=== PATIENT | female | born 2000 | race Caucasian/White ===

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

== ENCOUNTER → 2018-12-04 00:43 | Observation (INO) ==
[2018-12-03 23:25] LABS: Bilirubin,Urine Small (Negative); Blood,Urine Negative (Negative); Clarity,Urine Clear (Clear); Color,Urine Dark Yellow (Yellow); Glucose,Urine (UA) Normal (Normal); Ketones,Urine Trace mg/dL (Negative); Leukocyte Esterase,Urine Negative (Negative); Nitrite,Urine Negative (Negative); PH,Urine 5.5 pH Units (5.0-8.0); Protein,Urine Trace mg/dL (Neg-Trace); Specific Gravity,Urine 1.029 (1.010-1.025); Urobilinogen,Urine Normal (Normal)
[2018-12-03 23:33] LABS: Amphetamine Screen,Urine Negative ng/mL (Cutoff=1000); Barbiturate Screen,Urine Negative ng/mL (Cutoff=200); Benzodiazepines Screen,Urine Negative ng/mL (Cutoff=200); Cannabinoid Screen,Urine Negative ng/mL (Cutoff = 50); Cocaine Screen,Urine Negative ng/mL (Cutoff= 300); Opiate Screen,Urine Negative ng/mL (Cutoff=300); Phencyclidine Screen,Urine Negative ng/mL (Cutoff=25)
--- NOTE | 2018-12-04 01:11 | Discharge Summary ---
Date of Encounter: 12/04/18 Time of Encounter: 01:10 - Discharge Diagnosis (1) 34 weeks gestation of Priority: Primary Status: Acute Comments: Follow-up with her primary compounding pharmacy technician as scheduled labor parameters discussed Discharge home (2) Abdominal cramping affecting Priority: Secondary Status: Acute Comments: Patient was monitored for 2 hours with no cervical change Urinalysis showed moderate dehydration-encouraged to increase by mouth water intake - Discharge Medications Prescriptions: No Action Vits #90/Iron Fum/FA [ Formula Tablet] 1 each PO DAILY Ondansetron ODT [Zofran ODT] 4 mg SL Q6HR #10 tab.rapdis Home Medications: Vits #90/Iron Fum/FA [ Formula Tablet] 1 each PO DAILY 07/01/18 [History] Ondansetron ODT [Zofran ODT] 4 mg SL Q6HR #10 tab.rapdis 07/23/18 [Rx] Allergies/Adverse Reactions: Allergy/AdvReac Type Severity Reaction Status Date / Time No Known Allergies Allergy Verified 05/29/18 21:03 Data Procedures and tests throughout hospitalization: Laboratory Tests 12/03/18 12/03/18 23:10 23:10 Urine Color Dark Yellow Urine Clarity Clear Urine pH 5.5 Ur Specific [place] 1.029 H Urine Protein Trace Urine Glucose (UA) Normal Urine Ketones Trace H Urine Blood Negative Urine Nitrite Negative Urine Bilirubin Small H Urine Urobilinogen Normal Ur Leukocyte Esterase Negative Ur Culture Indicated? NO Urine Opiates Screen Negative Ur Barbiturates Screen Negative Ur Phencyclidine Scrn Negative Ur Amphetamines Screen Negative U Benzodiazepines Scrn Negative Urine Cocaine Screen Negative U Marijuana (THC) Screen Negative Ur Drug Screen Interp See Below Labs on day of discharge: Labs from last 24 hours 12/03/18 12/03/18 23:10 23:10 Urine Color Dark Yellow Urine Clarity Clear Urine pH 5.5 Ur Specific [place] 1.029 H Urine Protein Trace Urine Glucose (UA) Normal Urine Ketones Trace H Urine Blood Negative Urine Nitrite Negative Urine Bilirubin Small H Urine Urobilinogen Normal Ur Leukocyte Esterase Negative Ur Culture Indicated? NO Urine Opiates Screen Negative Ur Barbiturates Screen Negative Ur Phencyclidine Scrn Negative Ur Amphetamines Screen Negative U Benzodiazepines Scrn Negative Urine Cocaine Screen Negative U Marijuana (THC) Screen Negative Ur Drug Screen Interp See Below Date of admission: 12/03/18 22:58 Discharging clinician: Missy Wiseman Anticipated date of discharge: 12/04/18 - Patient Status Disposition: Home, Self-Care Condition: Good Functional capacity at discharge: independent ambulation Overall status at discharge: patient is progressing back to baseline - Discharge Instructions Additional Instructions: LABOR AND DELIVERY DISCHARGE INSTRUCTIONS Signs and Symptoms to be Reported to your Doctor Immediately: * Sudden gush, continuous or intermittent lead of fluid from vagina (note the time of gush and color of fluid) * Onset of bright red vaginal bleeding with or without pain (if you had a vaginal exam during this visit you may notice some dark red spotting. This is normal.) * Lower abdominal cramping or backache that is premenstrual-like feeling. * More than 6 contractions in one hour. * Burning during urination, having to urinate more frequently or pain in your mid-back. * A change in the baby's activity. This could be an increase or decrease in activity. * Severe headache which does not go away with tylenol. * Sudden swelling in the face, hands, arms and/or legs. * Upper abdominal pain - sometimes associated with heartburn or nausea and is not relieved by Maalox, Mylanta or Tums. * Dizziness or blurred vision or visual disturbances (seeing stars/lights). * Kick Counts One hour after a meal, lay down on one side in a quiet place. Count the number of nikita the baby moves during an hour. If less than 6 movements, notify your physician. Diet: *Force fluids - 8-10 tall glasses of fluid per day. May include popsicles and jello. 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 Nitrazine was negative on admission. She was monitored for 2 hours without cervical change. Urinalysis showed moderate dehydration and she was given a large couple of water to drink and encouraged to continue drinking throughout the evening for the next several days. She endorses good movement on arrival and denied vaginal bleeding. She was sent home in stable condition with appropriate follow-up. Time Attestation: Total time spent providing and/or coordinating discharge services: Time Spent: Less than 30 minutes Exam - Constitutional General appearance IM: A&O X 3, pleasant, answers questions appropriately - Respiratory Respiratory exam: Present: CTAB - Cardiovascular Cardiovascular exam IM: Present: RRR, +S1, +S2 - GI/Abdominal GI/Abdominal exam IM: normal bowel sounds, no peritoneal signs - Rectal Rectal exam: deferred - Uterine Tone: Firm - Extremities Exam Extremities exam IM: Present: full ROM, normal capillary refill, normal inspection, radial pulses palpable and symmetrical - Neurological Exam Neurological exam: alert, CN II-XII intact, normal gait, oriented X3, reflexes normal, no focal deficits, strengths equal and symetr throughout - VTE Reasons for not Prescribing Prophylaxis: Treatment not Indicated - Low risk for VTE
== END | disposition home or self-care (01) ==
LOC: 1NENULAB
PROVIDERS: ADMIT Advanced Practice Midwife; ATTEND Advanced Practice Midwife

== ENCOUNTER 2019-01-06 03:21 | Inpatient (IN) ==
[2019-01-06] MEDS ORDERED: Lidocaine 1% 20 ML MDV INFILT PRN (03:23)
[2019-01-06] MEDS ORDERED: Naloxone 0.4 MG/ML INJ IVP PRN (03:23)
[2019-01-06] MEDS ORDERED: *HR* Nalbuphine 10 MG/ML AMPUL IVP PRN (03:23)
[2019-01-06] MEDS ORDERED: Metoclopramide 10 MG/2 ML VIAL IVP PRN (03:23)
[2019-01-06] MEDS ORDERED: Famotidine 20 MG/2 ML VIAL IVP PRN (03:23)
[2019-01-06] MEDS ORDERED: Ondansetron 4 MG/2 ML VIAL IVP PRN (03:23)
[2019-01-06] MEDS ORDERED: Ringers Solution, Lactated 1,000 ML IVC SCH (03:30)
[2019-01-06] MEDS ORDERED: Penicillin G Potassium 5,000,000 UNIT in 0.9 % Sodium Chloride Mini Bag 100 ML IVPB ONE ×2 (03:40→04:00)
[2019-01-06] MEDS: miSOPROStol 25 MCG TABLET PO PRN ×2 (03:51→08:23)
[2019-01-06 03:57] LABS: Basophils % 0.3 %; Eosinophils # 0.1 K/mcL (0.0-0.6); Eosinophils % 0.7 %; Hematocrit 36.2 % (35.3-44.9); Hemoglobin 12.1 g/dL (11.5-15.4); Immature Granulocytes % 0.6 % (0-4); Lymphocytes % 24.9 %; Mean Corpuscular HGB Conc 33.4 g/dL (31.6-35.5); Mean Corpuscular Hemoglobin 29.8 pg (28.0-33.3); Mean Corpuscular Volume 89.2 fL (83.0-100.0); Mean Platelet Volume 11.5 fL (9.4-12.4); Monocytes # 0.8 K/mcL (0.0-1.3); Monocytes % 6.9 %; Platelet Count 235 K/mcL (140-400); Red Blood Count 4.06 M/mcL (3.82-4.97); Red Cell Distribution Width 13.5 % (11.5-14.5); Segmented Neutrophils % 66.6 %
[2019-01-06 04:05] LABS: Amphetamine Screen,Urine Negative ng/mL (Cutoff=1000); Barbiturate Screen,Urine Negative ng/mL (Cutoff=200); Benzodiazepines Screen,Urine Negative ng/mL (Cutoff=200); Cannabinoid Screen,Urine Negative ng/mL (Cutoff = 50); Cocaine Screen,Urine Negative ng/mL (Cutoff= 300); Opiate Screen,Urine Negative ng/mL (Cutoff=300); Phencyclidine Screen,Urine Negative ng/mL (Cutoff=25)
--- NOTE | 2019-01-06 06:17 | OB/GYN History & Physical ---
Date of Encounter: 01/06/19 Time of Encounter: 06:15 Assessment and Plan (1) Asymmetrical growth retardation Current visit: Yes Status: Acute (2) 39 weeks gestation of Current visit: No Status: Acute (3) Encounter for planned induction of labor Current visit: Yes Status: Acute Admit to labor and delivery Penicillin for GBS prophylaxis Nubain and epidural as desired Anticipate History of Present Illness Chief complaint: Induction of labor HPI: Ms. Alvarado is a 18 year old female 39+0 weeks gestation presents to triage for induction of labor. care with Dr. Sommer care complicated by late term asymmetric growth, found on 38 week ultrasound,"The placenta is anterior with calcifications present. The overall EFW is 54.1% however, outside of the abdominal circumference, all other measurements are less than the 10th percentile for gestational age. The MARBIN is 12.9 cm. ". CF carrier, FOB tested negative. Otherwise uncomplicated course. Labs: O+, rubella and varicella immune, GBS positive. Past Med Surg Social Fam HX - Past Medical History Medical history: no medical history Psychiatric history: depression - Past Surgical History Surgical History: non-contributory, orthopedic, other Additional surgical history: gallbladder - Social History Smoking Status: Current every day smoker Packs per day: 1/2 Smokeless Tobacco Status: No Alcohol use: none Drug use: none - Family History Mother Adopted: No Family Member Ethnicity: Non- Living Status: Still Living Hx Family Cardiac Disorders: Yes Hx Family Respiratory Disorders: No Hx Family Cancer: No Hx Family GI Disorders: No Hx Family Endocrine Disorder: No Hx Family Neuromuscular Disorders: No Hx Family Neurologic Disorders: No Hx Family HEENT Disorders: No Hx Family Autoimmune Disorders: No Obstetrical History - Pregnancies : 3 Para: 1 Term: 1 : 0 Ab's: 1 Livin Medications and Allergies Calcium Carbonate [Tums] 1,000 mg PO Q4HR 01/06/19 [History] Allergy/AdvReac Type Severity Reaction Status Date / Time No Known Allergies Allergy Verified 01/06/19 03:39 Exam - Constitutional Constitutional: well developed, well nourished, no acute distress - Neck Neck exam: full ROM - Lungs Respiratory exam: CTAB - Cardiovascular Cardiovascular exam: RRR - Abdomen Abdomen: Present: gravid, non tender - Extremities Extremities exam: normal capillary refill, normal inspection - Cervix Dilation: 1 (per RN) Results Result Diagrams: 01/06/19 03:35 Abnormal lab results WBC 12.0 K/mcL (4.3-11.1) H 01/06/19 03:35 All other labs normal. - VTE Reasons for not Prescribing Prophylaxis: Treatment not Indicated - Low risk for VTE
[2019-01-06] MEDS: Penicillin G Potassium 2,500,000 UNIT in 0.9 % Sodium Chloride 100 ML IVPB SCH ×5 (07:57→21:34)
--- NOTE | 2019-01-06 08:27 | OB Labor Progress Note ---
Date of Encounter: 01/06/19 Time of Encounter: 08:24 Labor Progress Note - Subjective Subjective: Patient sleeping soundly - Vital Signs Vital Signs: WNL - Cervix Cervix: 1-2/50/-3 - Heart Tones Heart Tones: 130 bpm, moderate variability, +15x15 accels, no decels. - [place]: Rare - Interventions Interventions: SVE Discussed double cervical portillo balloon with patient and she is agreeable to placement Double cervical portillo balloon inserted without difficulty. 60mL sterile water instilled into uterine balloon, 60mL instilled into vaginal balloon. Patient tolerated with minimal discomfort. - Plan Physician notified: Yes Physician notified details: Dr. Arvizu at bedside for portillo placement Plan: Administer another dose of po cytotec. Recheck cervix 4 hours after portillo placement IV pain medication or epidural when patient desires. Anticipate
[2019-01-06] MEDS ORDERED: Epidural Premix (fent/bupiv) 110 ML EP SCH (08:45)
--- NOTE | 2019-01-06 08:47 | Anesthesia Evaluation PreOp ---
Date of Encounter: 01/06/19 Time of Encounter: 10:06 - Past History Planned Operation: Del, 39wk induction Cardiac History: Denies any Significant Hx Pulmonary History: Smoker (1/2 pk q-day) SOCIAL WORKER CLINICAL History: Other (depression, [place] BMI 42,) Other Medical History: Denies Any Significant HX, GERD Anesthesia History: No Prior Anesthetic Complications, Past Anesthesia (gallbl adder, ortho, previous epidural without issues.) Alcohol Use: none Drug use: none Medications and Allergies Calcium Carbonate [Tums] 1,000 mg PO Q4HR 01/06/19 [History] Allergy/AdvReac Type Severity Reaction Status Date / Time No Known Allergies Allergy Verified 01/06/19 03:39 Anesthesia Results - Labs 01/06/19 03:35 Anesthesia Exam - HEENT Pupil (Motor): Pupils equal Mallampati: II Teeth: Normal Oral Opening: Greater than 3 - SOCIAL WORKER CLINICAL LOC: Oriented SOCIAL WORKER CLINICAL Motor: Normal RUE, Normal LUE, Normal RLE, Normal LLE, Normal Face SOCIAL WORKER CLINICAL Sensory: Normal: RUE, LUE, RLE, LLE, Face - Cardiac Rhythm: Regular Murmur: None - Pulmonary Breath Sounds: bilateral Clear Respiratory Effort: Symmetrical Anesthesia Assess/Plan ASA Score: 3 Level of consciousness: Cooperative, Oriented Anesthetic Plan: General, Spinal, Epidural Monitoring Plan: Standard Monitors Recovery Plan: PACU
[2019-01-06] MEDS ORDERED: miSOPROStol 100 MCG TABLET PO ONE (09:08)
--- NOTE | 2019-01-06 10:48 | Anesthesia Procedures ---
Date of Encounter: 01/06/19 Time of Encounter: 10:09 Procedures: Anesthesia - Epidural/Spinal Patient ID/Chart reviewed: Yes Patient examined: Yes OB Eval: Contractions: Non-stressed pattern Consent Obtained: Yes Supplemental Oxygen: None/Room Air Site Prep: Aseptic Technique, Sterile prep and drape, 0.5% Chlorhexidine/Alcohol Patient position: upright Local Anesthetic: Lidocaine 1% Amount of Local Anesthetic used: 2 Touhy Needle Gauge: 18 Touhy Needle Depth (cm): 7 Catheter Depth at Skin (cm): 12 Test Dose (1.5% Lido + Epi): Volume given (mls): 3 Test Dose Result: Negative Loading Dose: Other: 10ml from solution Loading Dose Administered: Thru Catheter Infusion Med: 0.125% Bupivacaine w/ 2 mcg/ml Fentanyl Infusion Rate (mls/hr): [address]: Tegaderm, Tape Interspace Used: L3-L4 Loss of Resistance (GRACIELA): Yes (saline) Blood: No CSF: Yes (purposeful with 25g no INJ) Paresthesia: No Procedure: vss though out, FHR stable per RNs
--- NOTE | 2019-01-06 12:09 | OB Labor Progress Note ---
Date of Encounter: 01/06/19 Time of Encounter: 11:30 Labor Progress Note - Subjective Subjective: Patient resting comfortably after epidural placement - Vital Signs Vital Signs: WNL - Cervix Cervix: 5/80/-2 - Heart Tones Heart Tones: 135 bpm, moderate variability, +15x15 accels, no decels. - [place]: Irregular - Interventions Interventions: Deflated vaginal balloon for SVE SVE 5 cm/80/-2 Patient now comfortable with epidural so additional 20 mL sterile water instilled into uterine balloon, totalling 80 mL, 60 mL instilled into vaginal balloon. - Plan Plan: Continue GBS prophylaxis Recheck cervix in 2hours AROM when appropriate Anticipate
[2019-01-06] MEDS ORDERED: Ropivacaine/PF 0.2% 20 ML VIAL ONE ×2 (12:47→22:46)
--- NOTE | 2019-01-06 14:42 | Anesthesia Progress Note ---
Date of Encounter: 01/06/19 Time of Encounter: 13:20 Anesthesia Note - Note Note: 01/06/19 14:31 c/o pain left side, level t10 right, no level on left to ETOH to skin, catheter pulled back 2cm re-dose epidural, 5ml 0.2% Rop plain, 30min later no better pulled back 1cm redose 4ml 0.2% Rop plain, lying on left side though out, FHR stable though out. 20min post second dose states "I'm better," spoke with her in regards to more boluses and potential need for another epidural, no issues with previous epidural or with placement with this one. will follow. vss though out.
[2019-01-06] MEDS ORDERED: Oxytocin 20 units/ LR 1000 mL 20 UNIT/1,000 ML BAG IVC ONE (19:39)
[2019-01-06] MEDS ORDERED: Oxytocin 20 units/ LR 1000 mL 20 UNIT/1,000 ML BAG IVC SCH (19:45)
--- NOTE | 2019-01-06 21:07 | OB Labor Progress Note ---
Date of Encounter: 01/06/19 Time of Encounter: 21:01 Labor Progress Note - Subjective Subjective: Patient resting comfortably with epidural in place. - Vital Signs Vital Signs: WNL - Cervix Cervix: 7/80/-2 - Heart Tones Heart Tones: FHR 140 bpm, moderate variability, +15x15 accels, early decels. - [place]: 4-6 minutes - Interventions Interventions: Position change - Plan Plan: Increase Pitocin to maintain MVU's > 200 Frequent position changes Anticipate
[2019-01-06] MEDS ORDERED: *HR* Ropivacaine/PF 0.5% 20 ML VIAL ONE (22:46)
--- NOTE | 2019-01-07 01:51 | OB/GYN Procedure Note ---
Delivery - Delivery Date: 01/07/19 Provider: Ivelisse Arvizu (case proctored by Dr. Baldwin) Intrapartum events: none Delivery induction: AROM, oxytocin, portillo, misoprostol Delivery monitor: external FHT Anesthesia: epidural - Infant (s) Infant A Infant Delivery Date: 01/07/19 Delivery Time: 01:02 Presentation: vertex Position: COLE[place] Route of delivery: Gender: Female Viability: Viable Pounds: 6 Ounces: 2 Weight Gram: 2.78 kg at 1 minute: 8 at 5 mins: 9 Shoulder Dystocia: not encountered Specimens collected: cord blood Placenta: spontaneous - Repair Episiotomy: none Laceration Description: None - Complications Delivery complications: hemorrhage Delivery comments: After delivery of the placenta, there was a continuous steady stream which did not slow down with uterine massage. There were not lacerations noted. The amy lee was increased. The bleeding slowed but then picked up again so 1000mcg Cytotec was given IN. The bleeding slowed with massage. Then the bleeding resumed so 0.2 mg methergine was given IM. The bleeding normalized. The fundus was firm below the umbilicus. - Disposition Mom disposition: stable in LDR disposition: stable in LDR
[2019-01-07] MEDS ORDERED: Methylergonovine 0.2 MG/ML AMPUL IM ONE (02:29)
[2019-01-07] MEDS ORDERED: miSOPROStol 100 MCG TABLET RC STA (02:29)
[2019-01-07] MEDS ORDERED: Sennosides 8.6 MG TABLET PO PRN (04:14)
[2019-01-07] MEDS ORDERED: Ibuprofen 600 MG TABLET PO PRN (04:14)
[2019-01-07] MEDS ORDERED: Rho Immune Globulin 1,500 UNIT SYRINGE IM PRN (04:14)
[2019-01-07] MEDS ORDERED: Acetaminophen 325 MG TABLET PO PRN (04:14)
[2019-01-07] MEDS ORDERED: Oxytocin 20 units/ LR 1000 mL 20 UNIT/1,000 ML BAG IVC SCH (04:14)
[2019-01-07] MEDS ORDERED: Prenatal Vit/FA 1 EACH TABLET PO SCH (09:00)
[2019-01-08 05:08] LABS: Basophils % 0.2 %; Eosinophils # 0.2 K/mcL (0.0-0.6); Eosinophils % 1.6 %; Hematocrit 34.2 % (35.3-44.9); Hemoglobin 11.3 g/dL (11.5-15.4); Immature Granulocytes % 0.6 % (0-4); Lymphocytes # 3.5 K/mcL (0.6-4.6); Lymphocytes % 35.7 %; Mean Corpuscular Hemoglobin 29.7 pg (28.0-33.3); Mean Corpuscular Volume 89.8 fL (83.0-100.0); Mean Platelet Volume 11.1 fL (9.4-12.4); Monocytes # 0.7 K/mcL (0.0-1.3); Monocytes % 6.7 %; Neutrophils # 5.4 K/mcL (1.6-8.9); Platelet Count 221 K/mcL (140-400); Red Blood Count 3.81 M/mcL (3.82-4.97); Red Cell Distribution Width 13.7 % (11.5-14.5); Segmented Neutrophils % 55.2 %; White Blood Count 9.8 K/mcL (4.3-11.1)
[2019-01-08 08:41] VITALS: BP 109/78
--- NOTE | 2019-01-08 08:41 | Discharge Summary ---
Date of Encounter: 01/08/19 Time of Encounter: 08:39 - Discharge Diagnosis (1) Vaginal delivery Priority: Primary Status: Acute Comments: Continue routine care discharge home today follow up with Dr. Sommer in 4-6 weeks - Discharge Medications Prescriptions: New Acetaminophen [Tylenol] 650 mg PO Q6HR PRN tablet PRN Reason: Mild Pain Ibuprofen [Motrin] 600 mg PO Q6HR PRN tablet PRN Reason: Cramping Discontinued Calcium Carbonate [Tums] 1,000 mg PO Q4HR Home Medications: Acetaminophen [Tylenol] 650 mg PO Q6HR PRN tablet 01/08/19 [Rx] Ibuprofen [Motrin] 600 mg PO Q6HR PRN tablet 01/08/19 [Rx] Allergies/Adverse Reactions: Allergy/AdvReac Type Severity Reaction Status Date / Time No Known Allergies Allergy Verified 01/06/19 03:39 Data Procedures and tests throughout hospitalization: Laboratory Tests 01/06/19 01/06/19 01/08/19 03:35 03:38 04:52 WBC 12.0 H 9.8 RBC 4.06 3.81 L Hgb 12.1 11.3 L Hct 36.2 34.2 L MCV 89.2 89.8 MCH 29.8 29.7 MCHC 33.4 33.0 RDW 13.5 13.7 Plt Count 235 221 MPV 11.5 11.1 Immature Gran % 0.6 0.6 Seg Neutrophils % 66.6 55.2 Lymphocytes % 24.9 35.7 Monocytes % 6.9 6.7 Eosinophils % 0.7 1.6 Basophils % 0.3 0.2 Neutrophils # 8.0 5.4 Lymphocytes # 3.0 3.5 Monocytes # 0.8 0.7 Eosinophils # 0.1 0.2 Basophils # 0.0 0.0 Urine Opiates Screen Negative Ur Buprenorphine Scrn Negative Ur Barbiturates Screen Negative Ur Phencyclidine Scrn Negative Ur Amphetamines Screen Negative U Benzodiazepines Scrn Negative Urine Cocaine Screen Negative U Marijuana (THC) Screen Negative Ur Drug Screen Interp See Below Labs on day of discharge: Labs from last 24 hours 01/08/19 04:52 WBC 9.8 RBC 3.81 L Hgb 11.3 L Hct 34.2 L MCV 89.8 MCH 29.7 MCHC 33.0 RDW 13.7 Plt Count 221 MPV 11.1 Immature Gran % 0.6 Seg Neutrophils % 55.2 Lymphocytes % 35.7 Monocytes % 6.7 Eosinophils % 1.6 Basophils % 0.2 Neutrophils # 5.4 Lymphocytes # 3.5 Monocytes # 0.7 Eosinophils # 0.2 Basophils # 0.0 Date of admission: 01/06/19 03:21 Primary care physician: PCP NONE Consults: 01/07/19 04:14 Consult to Dish Machine Operator [CONS] Routine Comment: Vaginal delivery, consult needed Discharging clinician: Blanca Odell Anticipated date of discharge: 01/08/19 - Patient Status Disposition: Home, Self-Care Condition: Good Functional capacity at discharge: independent ambulation - Discharge Instructions Follow Up With: NONE,PCP [Primary Care Provider] - Darlin Sommer DO [Partnered Physician] - - Diet and Activity Activity: increase activity as tolerated Diet: regular diet Hospital Course Reason for admission: active labor Delivery: Episiotomy: none Other procedures: none complications: uterine atony (PPH, received, methergine, [place] cytotec) Discharge diagnosis: IUP at term delivered [place] baby: female (bottle feeding) Time Attestation: Total time spent providing and/or coordinating discharge services: Time Spent: Less than 30 minutes Exam - Constitutional Vitals: Temp Pulse Resp BP Pulse Ox 97.9 F 76 14 122/78 97 01/07/19 21:35 01/07/19 21:35 01/07/19 21:35 01/07/19 21:35 01/07/19 21:35 General appearance IM: A&O X 3, pleasant, answers questions appropriately - Respiratory Respiratory exam: Present: CTAB - Cardiovascular Cardiovascular exam IM: Present: RRR, +S1, +S2 - GI/Abdominal GI/Abdominal exam IM: normal bowel sounds - Uterine Tone: Firm Uterus Position: At Umbilicus, Midline - Extremities Exam Extremities exam IM: Present: full ROM, normal inspection - Neurological Exam Neurological exam: alert, oriented X3, reflexes normal
== END 2019-01-08 10:45 | disposition home or self-care (01) | DRG 560 ==
LOC: 1NENULAB 03:21 → 1NENUOBS 01-07 04:13
PROVIDERS: ADMIT Advanced Practice Midwife; ATTEND Advanced Practice Midwife

== ENCOUNTER → 2022-02-16 11:27 | Observation (INO) ==
[2022-02-16 10:04] LABS: Basophils % 0.2 %; Eosinophils # 0.1 K/mcL (0.0-0.6); Eosinophils % 0.7 %; Hematocrit 35.5 % (35.3-44.9); Immature Granulocytes % 0.7 % (0-4); Lymphocytes # 2.4 K/mcL (0.6-4.6); Mean Corpuscular HGB Conc 33.8 g/dL (31.6-35.5); Mean Corpuscular Hemoglobin 29.9 pg (28.0-33.3); Mean Corpuscular Volume 88.3 fL (83.0-100.0); Mean Platelet Volume 10.9 fL (9.4-12.4); Monocytes # 0.7 K/mcL (0.0-1.3); Monocytes % 6.4 %; Neutrophils # 7.5 K/mcL (1.6-8.9); Platelet Count 224 K/mcL (140-400); Red Blood Count 4.02 M/mcL (3.82-4.97); Red Cell Distribution Width 13.9 % (11.5-14.5); White Blood Count 10.8 K/mcL (4.3-11.1)
[2022-02-16 10:09] LABS: Protein/Creatinine Ratio,Urine 0.17 mg/mg (0.00-0.20)
[2022-02-16 10:21] LABS: Alanine Aminotransferase 8 Units/L (7-52); Aspartate Amino Transferase 12 Units/L (13-39); BUN/Creatinine Ratio 11 (6-26); Blood Urea Nitrogen 4 mg/dL (6-20); Lactate Dehydrogenase 119 Units/L (140-271); Uric Acid 4.3 mg/dL (2.3-7.6)
== END | disposition home or self-care (01) ==
LOC: 1NENULAB
PROVIDERS: ADMIT Registered Nurse; ATTEND Registered Nurse

== ENCOUNTER 2022-02-23 08:13 | Inpatient (IN) ==
[2022-02-23] MEDS ORDERED: miSOPROStoL 25 MCG TABLET PO PRN (09:03)
[2022-02-23] MEDS ORDERED: Famotidine 20 MG/2 ML VIAL IVP PRN (09:03)
[2022-02-23] MEDS ORDERED: Metoclopramide 10 MG/2 ML VIAL IVP PRN (09:03)
[2022-02-23] MEDS ORDERED: Naloxone 0.4 MG/ML INJ IVP PRN (09:03)
[2022-02-23] MEDS ORDERED: Ondansetron 4 MG/2 ML VIAL IVP PRN (09:03)
[2022-02-23] MEDS ORDERED: Ringers Solution, Lactated 1,000 ML IVC SCH (09:15)
[2022-02-23 09:22] LABS: Basophils % 0.2 %; Eosinophils # 0.1 K/mcL (0.0-0.6); Eosinophils % 0.8 %; Hematocrit 36.2 % (35.3-44.9); Hemoglobin 12.2 g/dL (11.5-15.4); Immature Granulocytes % 1.4 % (0-4); Lymphocytes # 2.6 K/mcL (0.6-4.6); Mean Corpuscular HGB Conc 33.7 g/dL (31.6-35.5); Mean Corpuscular Volume 89.2 fL (83.0-100.0); Mean Platelet Volume 10.8 fL (9.4-12.4); Monocytes # 0.8 K/mcL (0.0-1.3); Monocytes % 6.6 %; Neutrophils # 8.8 K/mcL (1.6-8.9); Platelet Count 231 K/mcL (140-400); Red Blood Count 4.06 M/mcL (3.82-4.97); White Blood Count 12.5 K/mcL (4.3-11.1)
[2022-02-23 09:31] LABS: Amphetamine Screen,Urine Negative ng/mL (Cutoff=1000); Barbiturate Screen,Urine Negative ng/mL (Cutoff=200); Benzodiazepines Screen,Urine Negative ng/mL (Cutoff=200); Cannabinoid Screen,Urine Negative ng/mL (Cutoff = 50); Cocaine Screen,Urine Negative ng/mL (Cutoff= 300); Opiate Screen,Urine Negative ng/mL (Cutoff=300); Phencyclidine Screen,Urine Negative ng/mL (Cutoff=25)
[2022-02-23] MEDS ORDERED: Penicillin G Potassium 5,000,000 UNIT in 0.9 % Sodium Chloride Mini Bag 100 ML IVPB ONE (09:39)
[2022-02-23] MEDS ORDERED: EPHEDrine 50 MG/ML VIAL IVP PRN (10:30)
[2022-02-23] MEDS ORDERED: *HR* Nalbuphine 10 MG/ML AMPUL IV PRN (14:08)
[2022-02-23] MEDS: Penicillin G Potassium 2,500,000 UNIT/105 ML MLS IVPB SCH ×2 (14:18→17:57)
[2022-02-23] MEDS ORDERED: Oxytocin 30 UNIT/503 ML BAG IVC SCH (15:00)
[2022-02-23] MEDS ORDERED: Ropivacaine/PF 0.2% 20 ML VIAL ONE (15:09)
[2022-02-23] MEDS ORDERED: *HR* FentaNYL (PF) 100 MCG/2 ML VIAL ONE (15:09)
[2022-02-23] MEDS: Epidural Premix (fent/bupiv) 110 ML EP SCH ×2 (15:24→23:36)
[2022-02-24] MEDS: Penicillin G Potassium 2,500,000 UNIT/105 ML MLS IVPB SCH
[2022-02-24] MEDS ORDERED: Methylergonovine 0.2 MG/ML AMPUL IM ONE (05:00)
[2022-02-24] MEDS ORDERED: Measles/Mumps/Rubella Vacc 0.5 ML VIAL SQ PRN (09:32)
[2022-02-24] MEDS ORDERED: Acetaminophen 325 MG TABLET PO SCH (09:32)
[2022-02-24] MEDS ORDERED: Ibuprofen 600 MG TABLET PO SCH (09:32)
[2022-02-24] MEDS ORDERED: Ondansetron ODT 4 MG TAB.RAPDIS SL PRN ×2 (09:32→20:35)
[2022-02-24] MEDS ORDERED: Lanolin 7 G OINT...G. TP PRN (09:32)
[2022-02-24] MEDS ORDERED: Oxytocin 30 UNIT/503 ML BAG IVC SCH (09:32)
[2022-02-24] MEDS ORDERED: OXYTOCIN/RINGERS LACTATE 10 UNIT/166.6 ML BAG IVC ONE (09:32)
[2022-02-24] MEDS ORDERED: Prenatal Vit/FA 1 EACH TABLET PO SCH (09:32)
[2022-02-24] MEDS ORDERED: Rho Immune Globulin 1,500 UNIT SYRINGE IM PRN (09:32)
[2022-02-24] MEDS ORDERED: Benzocaine/Menthol 56 GM AEROSOL SPRAY TP PRN ×2 (09:32→20:36)
[2022-02-24] MEDS: Ibuprofen 600 MG TABLET PO SCH (21:02)
[2022-02-24] MEDS: Acetaminophen 325 MG TABLET PO SCH (22:06)
[2022-02-25 02:38] VITALS: BP 128/85
[2022-02-25] MEDS: Ibuprofen 600 MG TABLET PO SCH ×2 (02:51→09:03)
[2022-02-25] MEDS: Acetaminophen 325 MG TABLET PO SCH (06:55)
[2022-02-25 08:09] VITALS: PULSE 84; TEMP 97.6; O2SAT 97
[2022-02-25] MEDS ORDERED: Prenatal Vit/FA 1 EACH TABLET PO SCH (09:00)
== END 2022-02-25 12:18 | disposition home or self-care (01) | DRG 560 ==
LOC: 1NENULAB 08:13 → 1NENUOBS 02-24 08:00
PROVIDERS: ADMIT Obstetrics & Gynecology; ATTEND Obstetrics & Gynecology